=== PATIENT | female | born 1985 | race Caucasian/White ===

== ENCOUNTER → 2017-01-26 | Outpatient (CLI) | payer BC, MEDICAID ==
[2017-01-26 12:47] LABS: ALBUMIN 3.8 GM/DL (3.2-5.2); ALBUMIN/GLOBULIN RATIO 1.06 (1.00-1.93); BILIRUBIN,DIRECT 0.2 MG/DL (0.0-0.2); BILIRUBIN,TOTAL 0.6 MG/DL (0.2-1.0); PERCENT SATURATION 28.4 % (13.2-45.0); TOTAL PROTEIN 7.4 GM/DL (6.4-8.2)
== END ==
LOC: M LAB 11:15
PROVIDERS: ATTEND Internal Medicine Gastroenterology
DX: R94.5 Abnormal results of liver function studies (principal)

== ENCOUNTER 2019-01-15 23:21 | Inpatient (IN) | payer BC, MEDICAID ==
[~2019-01-15] VITALS: Ht 154.9 cm; Wt 126.4 kg
[2019-01-15 23:33] VITALS: BP 143/83
[2019-01-15 23:59] VITALS: BP 139/98
[2019-01-16] VITALS (23 sets, daily range): BP systolic 119–167; BP diastolic 69–98
[2019-01-16] MEDS ORDERED: CALCIUM GLUCONATE 1,000 MG in D5W MINI-BAG PLUS 100 ML IV PRN (00:15)
[2019-01-16] MEDS ORDERED: PRENTAB9 PO (00:32)
[2019-01-16] MEDS ORDERED: ASPI81TA85 PO (00:33)
[2019-01-16 00:41] LABS: HEMATOCRIT 37.9 % (36.0-47.0); HEMOGLOBIN 12.2 g/dl (12.0-15.5); MEAN CORPUSCULAR HEMOGLOBIN 28.6 pg (27.0-33.0); MEAN CORPUSCULAR HGB CONC 32.2 g/dl (32.0-36.5); PLATELET COUNT, AUTOMATED 157 10^3/uL (150-450); RED BLOOD COUNT 4.26 10^6/uL (4.00-5.40); WHITE BLOOD COUNT 8.9 10^3/uL (4.0-10.0)
[2019-01-16] MEDS ORDERED: BICITRA 30ML SOLN UDC PO ONE (00:45)
[2019-01-16] MEDS ORDERED: ceFAZolin SOD 2 GM in IV 1 EA IV ONE (00:45)
[2019-01-16] MEDS ORDERED: AZITHROMYCIN INJ 500 MG, VIAL MATE ADAPTER 1 EACH in D5W 250 ML IV ONE (00:45)
[2019-01-16 01:05] LABS: ALBUMIN 2.1 GM/DL (3.2-5.2); ALT/SGPT 33 U/L (12-78); BILIRUBIN,TOTAL 0.6 MG/DL (0.2-1.0); BLOOD UREA NITROGEN 8 MG/DL (7-18); CALCIUM LEVEL 8.2 MG/DL (8.5-10.1); CARBON DIOXIDE LEVEL 19 MEQ/L (21-32); CHLORIDE LEVEL 108 MEQ/L (98-107); CREATININE FOR GFR 0.64 MG/DL (0.55-1.30); GLOMERULAR FILTRATION RATE > 60.0 (>60); GLUCOSE, FASTING 102 MG/DL (70-100); POTASSIUM SERUM 3.6 MEQ/L (3.5-5.1); SODIUM LEVEL 139 MEQ/L (136-145); TOTAL PROTEIN 5.5 GM/DL (6.4-8.2); URIC ACID 7.5 MG/DL (2.6-6.0)
[2019-01-16] MEDS: D5W/0.9% SODIUM CHLORIDE 1,000 ML IV SCH ×2 (01:45→13:21)
[2019-01-16] MEDS ORDERED: MORPHINE PRES-FREE INJ 10 MG/10 ML VIAL (J2274) As Ordered ONE (01:52)
[2019-01-16] MEDS ORDERED: dexameTHASONE 4 MG/ML 1ML VIAL (J1100) As Ordered ONE (01:54)
[2019-01-16] MEDS ORDERED: ONDANSETRON 4MG/2ML VIAL (J2405) As Ordered ONE (01:54)
[2019-01-16] MEDS ORDERED: NALOXONE INJ 0.4 MG/1 ML VIAL (J2310) IV PRN ×2 (02:00)
[2019-01-16] MEDS ORDERED: NALBUPHINE HCL 10 MG/ML AMP (J2300) IV PRN ×2 (02:00→03:30)
[2019-01-16] MEDS ORDERED: METOCLOPRAMIDE INJ 10MG/2ML VIAL (J2765) IV PRN (02:00)
[2019-01-16] MEDS ORDERED: diphenhydrAMINE INJ 50MG/ML VIAL (J1200) IV PRN (02:00)
[2019-01-16] MEDS ORDERED: ONDANSETRON 4MG/2ML VIAL (J2405) IV PRN ×3 (02:00→03:30)
[2019-01-16] MEDS ORDERED: PHENYLephrine HCL 500 MCG/5 ML (100MCG/ML) SYRINGE (J2370) As Ordered ONE ×2 (02:02→02:12)
[2019-01-16] MEDS ORDERED: OXYTOCIN INJ 10 UNITS/ML VIAL (J2590) As Ordered ONE (02:07)
[2019-01-16 03:00] LABS: CORD GAS ABE V -8.6; CORD GAS HCO3 V 20.6 MEQ/L; CORD GAS O2 SAT V 27.3 %; CORD GAS PCO2 V 57.6 mmHg; CORD GAS PH V 7.171 UNITS; CORD GAS PO2 V 17.7 mmHg; CORD GAS SBC V 16.2 MEQ/L; CORD GAS TCO2 V 22.4 MEQ/L
[2019-01-16 03:05] LABS: CORD GAS ABE A -7.6; CORD GAS HCO3 A 23.4 MEQ/L; CORD GAS O2 SAT A 23.5 %; CORD GAS PCO2 A 77.6 mmHg; CORD GAS PH A 7.097 UNITS; CORD GAS PO2 A 15.7 mmHg; CORD GAS SBC A 16.9 MEQ/L; CORD GAS TCO2 A 25.8 MEQ/L
[2019-01-16] MEDS ORDERED: KETOROLAC 60 MG/2 ML VIAL (J1885) As Ordered ONE (03:06)
[2019-01-16] MEDS ORDERED: MEASLES,MUMPS,RUBELLA VACCINE INJ (MMR-II) (90707) SC SCH (03:15)
[2019-01-16] MEDS ORDERED: MOM 30ML SUSPENSION UDC PO PRN (03:15)
[2019-01-16] MEDS ORDERED: PERCOCET 5MG/325MG TAB PO PRN (03:15)
[2019-01-16] MEDS ORDERED: RHOGAM 300 MCG (1500 IU) INJ (J2790) IM SCH (03:15)
[2019-01-16] MEDS ORDERED: fentaNYL 100 MCG/2 ML INJECTION (J3010) IV PRN (03:30)
[2019-01-16] MEDS ORDERED: KETOROLAC 30 MG/ML VIAL (J1885) IV PRN (03:30)
[2019-01-16] MEDS ORDERED: MAGNESIUM SULFATE 4% INJ 20GM/500ML (40MG/ML) (J3475) As Ordered ONE (03:53)
[2019-01-16] MEDS ORDERED: LABETALOL 200 MG TAB As Ordered ONE (04:04)
[2019-01-16] MEDS: MAG Sulf (OBGYN) 20GM/500ML 20,000 MG in IV 1 EA IV SCH ×2 (04:07→14:16)
[2019-01-16] MEDS: LABETALOL 200 MG TAB PO SCH ×2 (04:08→20:58)
--- NOTE | 2019-01-16 06:46 | HPE ---
DATE OF ADMISSION: 01/15/2019 Joseline is a 33-year-old female 5, para 1-0-3-1 who has a history of prior section who was transferred from [facility] after being diagnosis was severe preeclampsia with blood pressure in the range of 170s and 110. She did receive three doses of labetalol followed by hydralazine and upon transfer her pressures were in the 140s and 90s. Upon admission here blood pressure was 147/88, which slowly raised. While she was in labor and delivery she was also placed on magnesium sulfate. The patient does have a history of gestational diabetes, which was poorly controlled and also what appears to be chronic hypertension or at least gestational hypertension. Her last delivery was complicated by preeclampsia and also gestational diabetes. Her hemoglobin A1c during this was unknown. While admitted at [facility] she had severe range blood pressures with mild blurred vision. No headache. No upper quadrant pain. Upon admission here the patient did complain of a frontal headache. No blurred vision, but did have some brisk reflexes. Her full record reviewed. She initiated care at [facility], had a few elevated blood pressures and was being monitored as well as a diagnosis of gestational diabetes for which she was being managed with diet control. She did have a few elevated blood pressures, was scheduled for diabetic teaching and possible medication. Her labs reviewed. Blood type is AB positive. Rubella immune. Hepatitis negative. HIV negative. GC and chlamydia negative. Her 3-hour sugar testing was abnormal. Labs done at [facility] shows a uric acid of 7.5. Spot protein/creatinine ratio of 0.6. Her LFTs were within normal limits. Platelets of 157. Upon admission here the uric acid was repeated which was 7.5, platelet of 157, AST, ALT is within normal limits. PAST MEDICAL HISTORY: Reviewed and was significant for: Polycystic ovarian syndrome. Gestational diabetes. Hypertension. PAST SURGICAL HISTORY: section times one. She had two spontaneous abortions and elective termination. The patient also had a carpal tunnel release in 2017 in both hands. ALLERGIES: No known drug allergies. SOCIAL HISTORY: She denies any alcohol, drugs or cigarette smoking. FAMILY HISTORY: Significant for diabetes, hypertension, heart disease. PHYSICAL EXAMINATION: Morbidly obese female in no acute distress. BMI of 52. Lungs: Clear. Abdomen: Soft, nondistended, gravid. Significant skin edema noted, as well as lower extremity edema. Deep tendon reflexes were 3/4 bilaterally. Vaginal exam: Closed, soft and posterior. Tracing reviewed, category 1 tracing. ASSESSMENT: 1. Intrauterine at 34-6/7 weeks gestation with severe preeclampsia status post three doses of labetalol and one dose of hydralazine, currently on magnesium sulfate. 2. History of prior section. PLAN: Given the patient's current blood pressure severe preeclampsia with the CARE SERVICES MANAGER symptoms of headache and mild blurred vision, a decision was made to proceed with delivery via section. The risk and benefit of delivery discussed with the patient as well as potential for intensive-care unit (NICU) admission for the baby. The patient is fully aware of the risks and agreed to proceed with delivery via a repeat section. Anesthesia and labor and delivery staff notified, we are awaiting the OR for repeat section.
[2019-01-16 08:36] LABS: HEMATOCRIT 34.6 % (36.0-47.0); HEMOGLOBIN 11.6 g/dl (12.0-15.5); MEAN CORPUSCULAR HEMOGLOBIN 29.7 pg (27.0-33.0); MEAN CORPUSCULAR HGB CONC 33.5 g/dl (32.0-36.5); MEAN CORPUSCULAR VOLUME 88.5 fl (80.0-96.0); PLATELET COUNT, AUTOMATED 168 10^3/uL (150-450); RED BLOOD COUNT 3.91 10^6/uL (4.00-5.40); WHITE BLOOD COUNT 12.4 10^3/uL (4.0-10.0)
--- NOTE | 2019-01-16 08:46 | RO ---
DATE OF PROCEDURE: 01/16/2019 Joseline is a 33-year-old female, 5, para 1-0-3-1 with a history of prior section who was transferred from [facility] after presenting with severe preeclampsia. She is also gestational diabetic, which appears to be poorly controlled. The patient also has morbid obesity with body mass index (BMI) of 52. After evaluation of this patient upon transfer, a decision was made to proceed with a repeat section. PREOPERATIVE DIAGNOSES: 1. Intrauterine at 35 weeks' gestation. 2. Severe preeclampsia. 3. Gestational diabetes. 4. Morbid obesity with a BMI of 52. 5. Prior section. POSTOPERATIVE DIAGNOSES: 1. Intrauterine at 35 weeks' gestation. 2. Severe preeclampsia. 3. Gestational diabetes. 4. Morbid obesity with a BMI of 52. 5. Prior section. 6. macrosomia. 7. Polyhydramnios. PROCEDURES DONE DURING THIS ADMISSION: 1. Repeat section. 2. Revision of old scar. ANESTHESIA: Spinal. SURGEON: Moustapha Velazquez DO PATTERN GRADER: Gina Pizano CNM COMPLICATIONS: None. ESTIMATED BLOOD LOSS: 600 mL. SPECIMEN SENT TO THE LABORATORY: Placenta. FINDING: Male in occiput transverse position. scores 7 and 9. weight 9 pounds 12 ounces. Normal-appearing ovaries. DESCRIPTION OF PROCEDURE: After obtaining informed consent, the patient was taken to the operating room where a spinal anesthetic was found to be adequate. She was then draped and prepped in the usual sterile fashion in the supine position. At this point, elliptical incision was made over the old scar. The old scar was removed. The incision was carried down to the fascia. The fascia was incised in midline fashion and carried through laterally. Superior aspect of the fascia was then grasped with a Barbie clamp, tented off, and dissected off the rectus muscles sharply. The inferior aspect was dissected off in similar fashion. Rectus muscles in midline fashion. Perineum identified. Perineal cavity entered bluntly. With the help of Gina Pizano, a uterine incision was made. The infant was delivered in atraumatic fashion. Nose and mouth bulb suctioned. Cord doubly clamped and cut, and was handed over to awaiting artificial pearl maker. Cord blood and cord gas were sent. Placenta removed manually. Uterus cleared of all clot and debris, and the uterine incision was then repaired in two separate layers of 0 Vicryl sutures. The pelvis copiously irrigated with normal saline and suctioned out. Attention turned to the peritoneum, which was closed in a running fashion using 2-0 Vicryl. Fascia closed in two separate segments of 0 Vicryl sutures. All superficial bleeders coagulated. The skin was then closed in a subcuticular fashion using 3-0 Vicryl in a Teodoro. Steri-Strips placed. The patient tolerated the procedure well. She was then transferred to recovery room in stable condition.
[2019-01-16 09:00] LABS: ALT/SGPT 28 U/L (12-78); BILIRUBIN,TOTAL 0.6 MG/DL (0.2-1.0); BLOOD UREA NITROGEN 8 MG/DL (7-18); CALCIUM LEVEL 8.4 MG/DL (8.5-10.1); CARBON DIOXIDE LEVEL 20 MEQ/L (21-32); CHLORIDE LEVEL 108 MEQ/L (98-107); CREATININE FOR GFR 0.65 MG/DL (0.55-1.30); GLOMERULAR FILTRATION RATE > 60.0 (>60); GLUCOSE, FASTING 150 MG/DL (70-100); LDH LACTATE DEHYDROGENASE 216 U/L (84-246); POTASSIUM SERUM 4.2 MEQ/L (3.5-5.1); SODIUM LEVEL 138 MEQ/L (136-145); URIC ACID 7.6 MG/DL (2.6-6.0)
[2019-01-16] MEDS: HEPARIN SOD (PORCINE) 5000 UNITS/ML VIAL SQ SCH ×2 (09:09→21:01)
[2019-01-16] MEDS: PRENATAL VITAMINS CHEWABLE TABLET PO SCH (09:09)
[2019-01-16] MEDS: DOCUSATE SODIUM 100 MG CAP PO SCH ×2 (09:09→20:58)
[2019-01-16] MEDS: glyBURIDE 2.5 MG TAB PO SCH ×2 (10:08→17:10)
[2019-01-16] MEDS ORDERED: LABETALOL 200 MG TAB PO ONE (16:00)
[2019-01-16] MEDS: PERCOCET 5MG/325MG TAB PO PRN (20:14)
[2019-01-17] VITALS (9 sets, daily range): BP systolic 120–170; BP diastolic 68–98
[2019-01-17] MEDS: MAG Sulf (OBGYN) 20GM/500ML 20,000 MG in IV 1 EA IV SCH ×2
[2019-01-17] MEDS: D5W/0.9% SODIUM CHLORIDE 1,000 ML IV SCH (02:41)
[2019-01-17] MEDS: glyBURIDE 2.5 MG TAB PO SCH ×2 (07:49→17:15)
[2019-01-17] MEDS: PRENATAL VITAMINS CHEWABLE TABLET PO SCH (08:51)
[2019-01-17] MEDS: LABETALOL 200 MG TAB PO SCH ×2 (08:51→21:15)
[2019-01-17] MEDS: DOCUSATE SODIUM 100 MG CAP PO SCH ×2 (08:51→21:15)
[2019-01-17] MEDS: HEPARIN SOD (PORCINE) 5000 UNITS/ML VIAL SQ SCH (08:51)
[2019-01-17] MEDS: PERCOCET 5MG/325MG TAB PO PRN ×2 (11:55→19:51)
[2019-01-17] MEDS: IBUPROFEN 800 MG TAB PO PRN ×2 (13:38→22:43)
[2019-01-18 02:00] VITALS: BP 138/70
[2019-01-18 07:00] VITALS: BP 165/85
[2019-01-18] MEDS: glyBURIDE 2.5 MG TAB PO SCH (07:30)
[2019-01-18] MEDS: IBUPROFEN 800 MG TAB PO PRN (08:01)
[2019-01-18 08:02] VITALS: BP 165/85
[2019-01-18] MEDS: PRENATAL VITAMINS CHEWABLE TABLET PO SCH (08:02)
[2019-01-18] MEDS: DOCUSATE SODIUM 100 MG CAP PO SCH (08:02)
[2019-01-18] MEDS: LABETALOL 200 MG TAB PO SCH (08:02)
[2019-01-18] MEDS ORDERED: PERCOCET PO (08:41)
[2019-01-18] MEDS ORDERED: LABE20TAB PO (08:41)
[2019-01-18] MEDS ORDERED: IBUP80TA PO (08:41)
[2019-01-18] MEDS ORDERED: ADACEL/BOOSTRIX VACCINE (DIPHTH/PERTUSS/ACELL/TETANUS)0.5ML SYR (90715) IM ONE (09:00)
--- NOTE | 2019-01-18 11:25 | DSES ---
DATE OF ADMISSION: 01/15/2019 DATE OF DISCHARGE: 01/18/2019 FINAL DIAGNOSES: 1. Intrauterine at 35 weeks gestation. 2. Severe preeclampsia. 3. Gestational diabetes. 4. Morbid obesity. 5. History of prior section. PROCEDURE PERFORMED DURING THIS ADMISSION: Repeat section. Revision of old scar. Lysis of adhesions. CONDITION ON DISCHARGE: Stable. DISCHARGE INSTRUCTIONS: She is instructed to call for any severe bleeding, pain or temperature greater than 101. She is discharged home with a prescription for labetalol 200 mg b.i.d., Percocet 1 tablet every 4 hours as needed for pain. She is to continue her vitamins. She is also given a prescription for Motrin 800 mg q.8 h as needed for pain. The patient is instructed to continue her fingerstick and to followup at [facility] to [facility] in approximately 1 week for blood pressure check and sugar log review. Discharge instructions given. BRIEF HISTORY: Joseline is a 33-year-old female who was accepted from a transfer from [facility] on January 15 after presenting with severe preeclampsia with blood pressure range in the 160s to 102 to as high as 110. She received IV labetalol followed by hydralazine and was placed also on magnesium sulfate. Upon admission she continued to have elevated blood pressures with STRATEGIC ADVISOR symptoms. At this point a decision was made to proceed with repeat section. She underwent that procedure, was then transferred to [facility] for postoperative care. She remained on magnesium sulfate for a total of 24 hours. Her blood pressures continued to be labile. She was then started on labetalol 200 mg b.i.d. She had a few elevated the fingersticks while on maternity. Glyburide was started however on day 2 her sugars were remained normal and found to be low in the 50s. At this point, decision was made to stop the glyburide. On postoperative day 2 she was found to be in stable condition. Physical exam was within normal limit. Her incision was clean, dry and intact and at this point a decision was made to discharge the patient home. She is being discharged in stable condition to followup at [facility] in approximately 1 week. edited: 01/19/2019 [id number]
== END 2019-01-18 11:00 | disposition home or self-care (01) | DRG 540 ==
LOC: M LDI 23:21 → M OBS 01-17 11:00
PROVIDERS: ADMIT Obstetrics & Gynecology; ATTEND Obstetrics & Gynecology
PROC: 10D00Z1 Extraction of Products of Conception, Low, Open Approach (ICD-10-PCS; principal; 2019-01-16 02:16)
DX: O14.14 Severe pre-eclampsia complicating childbirth (principal); O40.3XX0 Polyhydramnios, third trimester, not applicable or unspecified; O99.214 Obesity complicating childbirth; E66.01 Morbid (severe) obesity due to excess calories; O24.429 Gestational diabetes mellitus in childbirth, unspecified control; Z3A.34 34 weeks gestation of pregnancy; O34.211 Maternal care for low transverse scar from previous cesarean delivery; O36.63X0 Maternal care for excessive fetal growth, third trimester, not applicable or unspecified; Z37.0 Single live birth